=== PATIENT | female | born 1970 ===

== ENCOUNTER 2020-08-06 08:06 | Outpatient (CLI) | payer OTHER ==
[2020-08-08] MEDS ORDERED: ELAVIL PO (10:22)
[2020-08-08] MEDS ORDERED: FOLIC ACID PO (10:23)
[2020-08-08] MEDS ORDERED: METHOT PO (10:23)
[2020-08-08] MEDS ORDERED: HUMIRA PEN40 MG/0.2 IM (10:24)
[2020-08-08] MEDS ORDERED: VOLTAR PO (10:25)
[2020-08-08] MEDS ORDERED: COZAAR100 MG PO (10:26)
[2020-08-08] MEDS ORDERED: VASOF PO (10:26)
== END 2020-08-06 08:22 | disposition home or self-care (01) ==
LOC: LAB 08:06
PROVIDERS: ATTEND Obstetrics & Gynecology
DX: Z01.810 Encounter for preprocedural cardiovascular examination (principal); Z01.811 Encounter for preprocedural respiratory examination; R79.1 Abnormal coagulation profile

== ENCOUNTER 2020-08-14 05:25 | Day surgery (SDC) | payer OTHER ==
[~2020-08-14 05:25] MED LIST: COZAAR100 MG PO; ELAVIL PO; FOLIC ACID PO; HUMIRA PEN40 MG/0.2 IM; METHOT PO; VASOF PO; VOLTAR PO
[2020-08-14] MEDS ORDERED: MACRODANTIN100 M1 PO (09:36)
== END 2020-08-14 14:25 | disposition home or self-care (01) ==
LOC: CIR.AMB 05:25
PROVIDERS: ATTEND Obstetrics & Gynecology
DX: N93.8 Other specified abnormal uterine and vaginal bleeding (principal); Z20.822 Contact with and (suspected) exposure to COVID-19

== ENCOUNTER 2020-09-11 07:45 | Inpatient (IN) | payer OTHER ==
[~2020-09-11] VITALS: Ht 162.6 cm; Wt 61.2 kg
[~2020-09-11 07:45] MED LIST changes: +MACRODANTIN100 M1 PO
[2020-09-18] MEDS ORDERED: HUMIRA(CF)40 MG/0.1 (11:30)
[2020-09-18] MEDS ORDERED: DICLOFENAC SODI75 MG (11:30)
[2020-09-18] MEDS ORDERED: AMITRIPTYLINE H10 MG (11:30)
[2020-09-18] MEDS ORDERED: FOLIC ACID1 MG (11:30)
[2020-09-18] MEDS ORDERED: METHOTREXATE2.5 MG (11:30)
[2020-09-18] MEDS ORDERED: VITAMIN D21250 MCG (11:31)
[2020-09-18] MEDS ORDERED: OMEPRAZOLE20 MG (11:31)
[2020-09-18] MEDS ORDERED: VASOFLEX FORTE1 EACH (11:36)
[2020-09-21] MEDS ORDERED: RAYOS5 MG PO (11:50)
[2020-09-21] MEDS ORDERED: COLACE100 MG PO (11:51)
[2020-09-21] MEDS ORDERED: LOVENOX30 MG/0.3 SUBCUTANEO (11:54)
[2020-09-21] MEDS ORDERED: TANDEM PLUS CA1 EACH PO (11:58)
== END 2020-09-21 12:18 | disposition home or self-care (01) | DRG 742 ==
LOC: SURH 09-18 07:45 → O/R 09-18 08:30 → SURH 09-18 11:15 → OB/GYN 09-18 17:27
PROVIDERS: ADMIT Obstetrics & Gynecology; ATTEND Obstetrics & Gynecology
PROC: 0UB58ZZ Excision of Right Fallopian Tube, Via Natural or Artificial Opening Endoscopic (ICD-10-PCS; 2020-09-18)
PROC: 0USG8ZZ Reposition Vagina, Via Natural or Artificial Opening Endoscopic (ICD-10-PCS; 2020-09-18)
PROC: 0UT9FZZ Resection of Uterus, Via Natural or Artificial Opening With Percutaneous Endoscopic Assistance (ICD-10-PCS; principal; 2020-09-18 11:15)
DX: N80.0 Endometriosis of uterus (principal); N72 Inflammatory disease of cervix uteri; N73.6 Female pelvic peritoneal adhesions (postinfective); I01.1 Acute rheumatic endocarditis; N95.0 Postmenopausal bleeding; D50.0 Iron deficiency anemia secondary to blood loss (chronic); I10 Essential (primary) hypertension